=== PATIENT | female | born 1955 | race Caucasian/White ===

== ENCOUNTER 2021-07-10 15:28 | Emergency (ER) | payer OTHER ==
[~2021-07-10] VITALS: Ht 160 cm; Wt 72.7 kg
[2021-07-10] MEDS ORDERED: OXYB5TAB20 PO (15:36)
[2021-07-10] MEDS ORDERED: ASPI-1450 PO (15:36)
[2021-07-10] MEDS ORDERED: AMLO-257 PO (15:36)
[2021-07-10] MEDS ORDERED: AMLO-258 PO (15:40)
[2021-07-10] MEDS ORDERED: DICL50TA7 PO (15:40)
[2021-07-10] MEDS ORDERED: ASPI-1444 PO (15:40)
[2021-07-10] MEDS ORDERED: KETOROLAC TROMETHAMINE 60 MG/2 ML VIAL IM ONE (16:45)
[2021-07-10] MEDS ORDERED: ACETAMINOPHEN/CODEINE 300-30 MG TABLET PO ONE (16:45)
[2021-07-10 18:53] VITALS: BP 142/71
== END 2021-07-10 19:05 | disposition home or self-care (01) ==
LOC: EMS 15:31
DX: S39.012A Strain of muscle, fascia and tendon of lower back, initial encounter (principal); I10 Essential (primary) hypertension; V43.52XA Car driver injured in collision with other type car in traffic accident, initial encounter; Y93.89 Activity, other specified; Y92.89 Other specified places as the place of occurrence of the external cause; Y99.8 Other external cause status
CPT/HCPCS: 72100; 73503; 96372; 99284; J1885